=== PATIENT | female | born 1995 | race Caucasian/White ===

== ENCOUNTER 2017-02-09 02:04 | Emergency (ER) | payer SELFPAY ==
[~2017-02-09] VITALS: Ht 160 cm; Wt 96.6 kg
[~2017-02-09 02:04] MED LIST: ACET325T9 PO; AMOX250C PO; META800T21 PO; OMEP20TA PO; ONDA4TAB10 PO; ONDA4TAB10 SL; PRED50TA PO
[2017-02-09 02:41] VITALS: BP 126/76
[2017-02-09] MEDS ORDERED: ACETAMINOPHEN 500 MG TABLET PO ONE ×2 (02:55→03:00)
[2017-02-09 03:08] LABS: INFLUENZA A PATIENT NEGATIVE (NEGATIVE); INFLUENZA B PATIENT NEGATIVE (NEGATIVE)
--- NOTE | 2017-02-09 03:10 | PHYS DOC ---
General Chief Complaint: FLU SYMPTOM Stated Complaint: COUGH,EAR PAIN,SOA Time Seen by MD: 02:23 Source: patient Problems: History of Present Illness Initial Comments Patient here for URI symptoms and earache. Patient says she started feeling unwell about a week ago. She has she's had a significant runny nose and nasal congestion with clear nasal discharge. She's had subjective fever and chills but has not taken her temperature. She's had some earache and also had a sore throat, mostly in the right side of the throat, which was hard for her to swallow. She also says she's had shortness of breath, mild nonproductive cough, and chest discomfort. She states she's had nausea with one episode of emesis, earlier this morning. She has been able tolerate a small amount of by mouth food and fluids since. She has no abdominal pain. She denies any change amount or bladder habits. She has no focal extremity or neurologic complaints. She is reportedly 20 weeks . 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 There is no known sick contacts at home and no increasing or decreasing factors. She says she took Tylenol at home today for this without help. She's taken nothing else for it. Patient's past medical history is otherwise unremarkable other than for current . She is a nonsmoker and nonuser of ethanol. When asked why she is here specifically tonight after week, she says, as her left ear seems to be hurting significantly more tonight, such that she is rocking back and forth, anxious, crying in the exam room at time of physician evaluation. Allergies: Coded Allergies: No Known Drug Allergies (Unverified , 03/17/14) Past Medical History Medical History: no pertinent history Surgical History: noncontributory Social History Smoker: non-smoker Alcohol: none Review of Systems All Other Systems: Reviewed and Negative Physical Exam General Appearance: WD/WN, no apparent distress Ear, Nose, Throat: normal ENT inspection, normal pharynx Neck: full range of motion, supple, normal inspection Respiratory: lungs clear, normal breath sounds, no respiratory distress Cardiovascular: regular rate, rhythm, no edema, no gallop Gastrointestinal: non tender, soft, no organomegaly Back: no CVA tenderness, no vertebral tenderness Extremities: non-tender, normal inspection Neurologic/Psychiatric: alert, oriented x 3 Skin: normal color Comments Generally this is a well-developed well-nourished white female in no acute somatic distress. She is grossly anxious, rocking back and forth, and crying. However, she noted only do this with the physician in the room, and after exiting the room for some time and come back, she is initially lying quietly without complaint and then begins these actions again. Vitals are as noted. Pertinent findings on physical exam show the ears to be clear. Some possible suggestion of some fluid behind left ear but there is certainly no erythema of the canal or the TM, no signs of trauma about the ear. The nose is clear. Throat is clear as well. There is no gross dysphagia and dysphonia or problems with secretions noted. Neck is supple without adenopathy or JVD. There's no meningeal signs. She has some slight tenderness in the left high anterior neck but there is no gross adenopathy swelling redness or lesions seen. Chest is clear to auscultation bilaterally. There is no tachypnea. No retractions. She verbalizes without difficulty. She has no signs of respiratory distress. Cardiac vascular exams unremarkable. The abdomen is soft and nontender. Back shows no CVA tenderness. Extremities show no rash, cyanosis, or edema. Neurologic exam finds the patient awake, grossly anxious and crying, but generally cooperative. Remainder of physical exam is clinically unremarkable. Orders, Labs, Meds Old charts note multiple prior ER visits for a variety of complaints including hyperemesis, head contusion, allergic reaction, strep throat, back pain, contact dermatitis, vomiting with myalgias, eye problem, and UTI. This her second visit this year alone. She was seen here 6 times in 2016. Strep is negative. Influenza A and B is negative. 0300 Patient resting comfortably in the ER. I discussed with her most likely diagnosis her symptoms are probably related to viral URI. She may well have some serous otitis with some nasal congestion. I did discuss with her that this might be difficult to treat given her , is really nothing we can use a Fleet other than Tylenol for pain. She seems somewhat frustrated and disappointed by this information. We'll go and give her a dose of Tylenol here in the emergency department, and I advised on the use of Tylenol at home. I'm able to give her prescription for Benadryl as well as for Claritin-D which are reported to be safe in . Hopefully this will help resolve some of her symptoms. We discussed additional home care including rest, increasing fluids, and again the use of Tylenol only as needed for pain while . She voiced understanding need to follow up with primary care or return to the ER sooner as needed if worsening anyway. She only has not attrition, who apparently told her to come to the ER tonight. We'll give her a list of primary care physicians for follow-up as well. She looks well, anxious. Tearful, but in no acute somatic distress and okay for discharge home at this time. ANDRAE MANN MD Feb 09, 2017 02:57
== END 2017-02-09 03:15 | disposition home or self-care (01) ==
LOC: ER 02:04
DX: O26.892 Other specified pregnancy related conditions, second trimester (principal); H66.90 Otitis media, unspecified, unspecified ear; R06.02 Shortness of breath; J02.9 Acute pharyngitis, unspecified; O21.0 Mild hyperemesis gravidarum; R50.9 Fever, unspecified; R07.89 Other chest pain; Z3A.20 20 weeks gestation of pregnancy
CPT/HCPCS: 87070; 87804; 87880; 99284

== ENCOUNTER 2017-10-01 16:32 | Emergency (ER) | payer OTHER ==
[~2017-10-01] VITALS: Ht 160 cm; Wt 81.8 kg
[~2017-10-01 16:32] MED LIST changes: +AMOX-260 PO; -AMOX250C PO; +META-21 PO; -META800T21 PO; -OMEP20TA PO; +OMEP20TA8 PO
[2017-10-01 16:43] VITALS: BP 110/66
[2017-10-01] MEDS ORDERED: KETOROLAC 60 MG/2 ML VIAL. IM ONE (17:45)
[2017-10-01] MEDS ORDERED: CYCLOBENZAPRINE 10 MG TABLET. PO ONE (18:45)
[2017-10-01] MEDS ORDERED: traMADol 50 MG TABLET PO ONE (18:45)
[2017-10-01] MEDS ORDERED: KETOROLAC 30 MG/ML VIAL. IM ONE (18:45)
[2017-10-01] MEDS ORDERED: TRAM-48 PO ×2 (19:13→19:18)
[2017-10-01] MEDS ORDERED: IBUP600T16 PO ×2 (19:13→19:18)
[2017-10-01] MEDS ORDERED: CYCL-331 PO ×2 (19:13→19:18)
--- NOTE | 2017-10-01 19:16 | PHYS DOC ---
Past History Past Medical History: No Pertinent History Past Surgical History: No Surgical History Smoking: Cigarettes, Less than 1pk/day, Quit Less Than 1 Year Alcohol Use: None Drug Use: None Adult General Chief Complaint Chief Complaint: BACK PAIN - NO INJURY HPI HPI Patient is a 32-year-old female who presents here today complaining of neck pain and shoulder pain. Patient reports that she's had pain to her bilateral sternocleidomastoid muscles and was unable turn her head. Patient denies any other symptomatology. Patient has any fevers shakes chills nausea vomiting diarrhea chest pain shortness of breath cough cold or rhinorrhea. Patient reports she's been taking ibuprofen with minimal relief. Patient reports the pain and discomfort has been there for several days now. Patient presents pain is been getting worse and her neck is becoming more stiff. Patient denies any history of hypertension diabetes liver or kidney problems. Patient does not smoke drink or do any drugs. Patient is allergic to any medications and reports her last menstrual period was approximately 2 weeks ago. Denies any weakness to her upper or lower extremities. Patient denies any paresthesias to her upper or lower extremities. Review of systems: Constitutional: Denies fever or chills Eyes: Denies change in visual acuity, redness, or eye pain HENT: Denies nasal congestion or sore throat Physical exam: All other systems were reviewed and found to be within normal limits, except as documented in this note. Constitutional: Well developed, well nourished, no acute distress, non-toxic appearance. HENT: Normocephalic, atraumatic, bilateral external ears normal, oropharynx moist, no oral exudates, nose normal. Eyes: PERRLA, EOMI, conjunctiva normal, no discharge. Neck: Normal range of motion, no tenderness, supple, no stridor. Cardiovascular:Heart rate regular rhythm, Lungs & Thorax: Bilateral breath sounds clear to auscultation Abdomen: Bowel sounds normal, soft, no tenderness, no masses, no pulsatile masses. Skin: Warm, dry, no erythema, no rash. Back: No tenderness, no CVA tenderness. Extremities: No tenderness, no cyanosis, no clubbing, ROM intact, no edema. Neurologic: Alert and oriented X 3, normal motor function, normal sensory function, no focal deficits noted. Psychologic: Affect normal, judgement normal, mood normal. Patient's ER physical exam is significant for tenderness to palpation to her bilateral sternocleidomastoid muscles as well as pain at producible with rotation of her neck. Assessment and plan: This is a 22-year-old female who presents to the ER today secondary to neck pain and stiffness. Patient's clinically hemodynamically stable. Patient was prescribed a dose of Flexeril and ibuprofen and Ultram in the ED as well as given an arm sling to assist her with her discomfort. Patient is neurovascularly intact. Patient's presentation is consistent with likely torticollis versus muscle strain. Patient has been instructed on heating pad and close follow-up with primary care physician for reevaluation of the pain persists. Patient was discharged home with prescription for Flexeril, Motrin, Ultram and an arms sling. Current Medications Current Medications Current Medications Medications (Trade) Dose Ordered Sig/Alanis Start Time Stop Time Status Last Admin Dose Admin Cyclobenzaprine HCl (Flexeril) 10 mg 1X ONCE 10/01/17 18:45 10/01/17 18:46 DC 10/01/17 18:45 10 MG Ketorolac Tromethamine (Toradol) 30 mg 1X ONCE 10/01/17 18:45 10/01/17 18:46 DC Tramadol HCl (Ultram) 50 mg 1X ONCE 10/01/17 18:45 10/01/17 18:46 DC 10/01/17 18:47 50 MG Allergies Allergies Allergies Coded Allergies Type Severity Reaction Last Updated Verified No Known Drug Allergies 03/17/14 No Current Patient Data Vital Signs Vital Signs Date Time Temp Pulse Resp B/P (MAP) Pulse Ox O2 Delivery O2 Flow Rate FiO2 10/01/17 18:47 18 100 Room Air 10/01/17 16:43 98.5 105 EKG EKG [] Radiology/Procedures Radiology/Procedures [] Course & Med Decision Making Course & Med Decision Making Pertinent Labs and Imaging studies reviewed. (See chart for details) [] Dragon Disclaimer Dragon Disclaimer This electronic medical record was generated, in whole or in part, using a voice recognition dictation system. Departure Departure: Impression: Primary Impression: Torticollis, acute Disposition: 01 HOME, SELF-CARE Condition: IMPROVED Referrals: PCP,NO (PCP) Patient Instructions: Arm Sling Use, [id number], Torticollis, Acute Scripts Tramadol Hcl (ULTRAM) 50 Mg Tablet 50 MG PO PRN Q6HRS Y for PAIN, #20 TAB Prov: KOFI MOSLEY MD 10/01/17 Ibuprofen (IBUPROFEN) 600 Mg Tablet 600 MG PO QID Y for PAIN, #20 Prov: KOFI MOSLEY MD 10/01/17 Cyclobenzaprine Hcl (CYCLOBENZAPRINE HCL) 10 Mg Tablet 1 TAB PO TID, #30 TAB Prov: KOFI MOSLEY MD 10/01/17 Tramadol Hcl (ULTRAM) 50 Mg Tablet 50 MG PO PRN Q6HRS Y for PAIN, #20 TAB Prov: KOFI MOSLEY MD 10/01/17 Ibuprofen (IBUPROFEN) 600 Mg Tablet 600 MG PO QID Y for PAIN, #20 Prov: KOFI MOSLEY MD 10/01/17 Cyclobenzaprine Hcl (CYCLOBENZAPRINE HCL) 10 Mg Tablet 1 TAB PO TID, #30 TAB Prov: KOFI MOSLEY MD 10/01/17 KOFI MOSLEY MD Oct 01, 2017 19:16
== END 2017-10-01 19:50 | disposition home or self-care (01) ==
LOC: ER 16:32
DX: M43.6 Torticollis (principal); Z87.891 Personal history of nicotine dependence
CPT/HCPCS: 81025; 96372; 99283; J1885

== ENCOUNTER 2017-11-28 14:37 | Emergency (ER) | payer OTHER ==
[~2017-11-28] VITALS: Ht 160 cm; Wt 81.8 kg
[~2017-11-28 14:37] MED LIST changes: +CYCL-331 PO; +IBUP600T16 PO; +TRAM-48 PO
--- NOTE | 2017-11-28 15:03 | PHYS DOC ---
Past History Past Medical History: No Pertinent History Past Surgical History: No Surgical History Smoking: Cigarettes, Less than 1pk/day, Quit Less Than 1 Year Alcohol Use: None Drug Use: None Adult General Chief Complaint Chief Complaint: FLU SYMPTOM HPI HPI Patient is a 22 year old F who presents with nausea and vomiting starting this morning. She states that multiple people who live in the same house have had flulike symptoms. She denies other associated symptoms. She denies other exacerbating or alleviating factors. Review of Systems Review of Systems Constitutional: Negative except history of present illness Eyes: Denies change in visual acuity, redness, or eye pain [] HENT: Denies nasal congestion or sore throat [] Respiratory: Denies cough or shortness of breath [] Cardiovascular: No additional information not addressed in HPI [] GI: Negative except history of present illness : Denies dysuria or hematuria [] Musculoskeletal: Denies back pain or joint pain [] Integument: Denies rash or skin lesions [] Neurologic: Denies headache, focal weakness or sensory changes [] Endocrine: Denies polyuria or polydipsia [] All other systems were reviewed and found to be within normal limits, except as documented in this note. Family History Family History No pertinent family medical history was reported Current Medications Current Medications Current medications were reviewed Allergies Allergies Allergies Coded Allergies Type Severity Reaction Last Updated Verified No Known Drug Allergies 03/17/14 No Physical Exam Physical Exam Constitutional: Well developed, well nourished, no acute distress, non-toxic appearance. [] HENT: Normocephalic, atraumatic, bilateral external ears normal, oropharynx moist, no oral exudates, nose normal. [] Eyes: EOMI, conjunctiva normal, no discharge. [] Neck: Normal range of motion, no tenderness, supple, no stridor. [] Cardiovascular:Heart rate regular rhythm, Lungs & Thorax: Bilateral breath sounds clear to auscultation [] Abdomen: Bowel sounds normal, soft, no tenderness, no masses, no pulsatile masses. [] Skin: Warm, dry, no erythema, no rash. [] Extremities: No tenderness, no cyanosis, no clubbing, ROM intact, no edema. [] Neurologic: Alert and oriented X 3, normal motor function, normal sensory function, no focal deficits noted. [] Psychologic: Affect normal, judgement normal, mood normal. [] Current Patient Data Vital Signs Vital Signs Date Time Temp Pulse Resp B/P (MAP) Pulse Ox O2 Delivery O2 Flow Rate FiO2 11/28/17 14:40 98.6 114 18 99 Room Air Lab Results Laboratory Tests Test 11/28/17 14:48 Influenza Type A (Rapid) Negative (NEGATIVE) Influenza Type B (Rapid) Negative (NEGATIVE) EKG EKG [] Radiology/Procedures Radiology/Procedures [] Course & Med Decision Making Course & Med Decision Making Pertinent Labs and Imaging studies reviewed. (See chart for details) [] Dragon Disclaimer Dragon Disclaimer This electronic medical record was generated, in whole or in part, using a voice recognition dictation system. Departure Departure: Impression: Primary Impression: Gastroenteritis Disposition: HOME, SELF-CARE Condition: STABLE Referrals: PCPLUIZA (PCP) Patient Instructions: Viral Gastroenteritis Additional Instructions: Hermila was seen in the emergency department for nausea and vomiting. No emergency medical condition was found on history or physical exam. She was found have a negative flu screen. She was given Zofran, Tylenol and Toradol to treat her symptoms. She is given a prescription for Zofran for nausea. She is advised follow-up with her primary care doctor as needed for further management. She is also advised return the emergency room if she develops new or worsening symptoms. Scripts Ondansetron (ZOFRAN ODT) 4 Mg Tab.rapdis 1 TAB SL Q8HRS, #15 TAB Prov: ABDI SOLER MD 11/28/17 ABDI SOLER MD Nov 28, 2017 15:02
[2017-11-28 15:29] LABS: INFLUENZA A PATIENT NEGATIVE (NEGATIVE); INFLUENZA B PATIENT NEGATIVE (NEGATIVE)
[2017-11-28] MEDS ORDERED: ONDANSETRON ODT 4 MG TAB.RAPDIS PO ONE (15:30)
[2017-11-28] MEDS ORDERED: ONDA4TAB10 SL (15:48)
[2017-11-28] MEDS ORDERED: ACETAMINOPHEN 500 MG TABLET PO ONE (15:50)
[2017-11-28 16:07] VITALS: BP 124/81
[2017-11-28] MEDS ORDERED: KETOROLAC 60 MG/2 ML VIAL. IM ONE (16:20)
[2017-11-29] MEDS ORDERED: OSEL75CA PO (00:51)
[2017-11-29] MEDS ORDERED: BENZ100C PO (00:51)
[2017-11-29] MEDS ORDERED: ONDA8TAB12 PO (00:51)
== END 2017-11-28 16:10 | disposition home or self-care (01) ==
LOC: ER 14:37
DX: K52.9 Noninfective gastroenteritis and colitis, unspecified (principal); Z87.891 Personal history of nicotine dependence
CPT/HCPCS: 87804; 96372; 99284; J1885; Q0162

== ENCOUNTER 2017-11-28 23:21 | Emergency (ER) | payer OTHER ==
[~2017-11-28] VITALS: Ht 160 cm; Wt 81.8 kg
[2017-11-28 23:30] VITALS: BP 113/64
--- NOTE | 2017-11-28 23:50 | PHYS DOC ---
Past History Past Medical History: No Pertinent History Past Surgical History: No Surgical History Smoking: Cigarettes, Less than 1pk/day, Quit Less Than 1 Year Alcohol Use: Occasionally Drug Use: None Adult General Chief Complaint Chief Complaint: SHORTNESS OF BREATH HPI HPI Patient is a 22 year old female who presents with worsening cough, chills and shortness of breath. She was seen earlier today and had a negative influenza screen at 1448 PM. She states her symptoms started today. She felt little lightheaded this morning had chills. Was evaluated here. Since then she's not had any Tylenol or Motrin since which she was dosed here in the ER earlier this afternoon. She's had nausea and vomiting once. No diarrhea. No recent travel. He is not on oral contraceptives. Does smoke tobacco. Review of Systems Review of Systems Constitutional: POS fever or chills Eyes: Denies change in visual acuity, redness, or eye pain HENT: POS nasal congestion but denies sore throat Respiratory: POS cough and shortness of breath Cardiovascular: POS chest pain GI: Denies abdominal pain, POS nausea & vomiting once, Denies bloody stools or diarrhea : Denies dysuria or hematuria Musculoskeletal: Denies back pain POS all over joint pain and body aches Integument: Denies rash or skin lesions Neurologic: Denies headache, focal weakness or sensory changes All other systems were reviewed and found to be within normal limits, except as documented in this note. Allergies Allergies Allergies Coded Allergies Type Severity Reaction Last Updated Verified No Known Drug Allergies 03/17/14 No Physical Exam Physical Exam Constitutional: Well developed, well nourished, no acute distress, non-toxic appearance. HENT: Normocephalic, atraumatic, panic members are clear bilaterally without erythema. Bilateral external ears normal, oropharynx moist, no oral exudates, nose normal. Eyes: PERRLA, EOMI, conjunctiva normal, no discharge. Neck: Normal range of motion, no tenderness, supple, no stridor. Cardiovascular:Heart rate regular rhythm, tachycardic, no murmur Lungs & Thorax: Bilateral breath sounds clear to auscultation, no wheezing rales or rhonchi. Abdomen: Bowel sounds normal, soft, no tenderness, no masses, no pulsatile masses. Skin: Warm, dry, no erythema, no rash. Back: No tenderness, no CVA tenderness. Extremities: No tenderness, no cyanosis, no clubbing, ROM intact, no edema. No calf pain swelling or tenderness. Neurologic: Alert and oriented X 3, normal motor function, normal sensory function, no focal deficits noted. Psychologic: Affect normal, judgement normal, mood normal. Current Patient Data Vital Signs Vital Sign - Last 24 Hours 11/28/17 11/28/17 23:30 23:56 Temp 102.8 Pulse 107 Resp 20 Pulse Ox 100 99 O2 Delivery Room Air Room Air EKG EKG EKG interpreted by myself at 2330 PM shows sinus tachycardia, rate of 103, no ST elevation, nonspecific ST changes. Radiology/Procedures Radiology/Procedures Chest x-ray interpreted by myself at 0035 am normal chronic silhouette, no pleural effusion, no infiltrate or consolidation. No pneumothorax. Normal mediastinum. Course & Med Decision Making Course & Med Decision Making Evaluated patient upon arrival, reviewed recent visit from earlier today. Patient sent to pathology is consistent with a viral syndrome and influenza a particular. I did inform the mother that the swabs often false negative initially. She was dosed here with Tylenol and Motrin and Zofran. Given a DuoNeb treatment. Chest x-ray is negative for any acute consolidation. I informed the mother that I will start her on Tamiflu as she is placed in 24 hours percent rheumatology with classic findings. I did inform the mother the patient that there is no direct here for this. Her symptoms will last for quite some time and the fever and body aches in particular will continue for several more days. She's continue the Tylenol Motrin as that will help her symptoms significantly. Tessalon Perles were written for as well. Zofran prescription provided for any further nausea. Patient is given return and follow up precautions PERC RULE Criteria: Age < than 50 years-Y Heart rate < 100-N Oxygen saturation > 95%-N No hemoptysis-N No estrogen use-N No prior DVT or PE-N No unilateral leg swelling-N No surgery or trauma requiring hospitalization within the prior 4 weeks-N Note: tachycardic due to temp >102. I have spoken with the patient and/or caregivers. I have explained the patient' s condition, diagnosis and treatment plan based on the information available to me at this time. I have answered the patient's and/or caregiver's questions and addressed any concerns. The patient and/or caregivers have as good an understanding of the patient's diagnosis, condition and treatment plan as can be expected at this point. The patient's condition is stable and appropriate for discharge from the emergency department. The patient will pursue further outpatient evaluation with the primary care physician or other designated or consulting physician as outlined in the discharge instructions. The patient and/or caregivers are agreeable to this plan of care and follow-up instructions have been explained in detail. The patient and/or caregivers have received these instructions in written format and have expressed an understanding of the discharge instructions. The patient and/or caregivers are aware that any significant change in condition or worsening of symptoms should prompt an immediate return to this or the closest emergency department or a call to 911. Dragon Disclaimer Dragon Disclaimer This electronic medical record was generated, in whole or in part, using a voice recognition dictation system. Departure Departure: Impression: Primary Impression: Viral syndrome Additional Impression: Cough Disposition: HOME, SELF-CARE Condition: STABLE Referrals: PCP,NO (PCP) Patient Instructions: Influenza Facts, Influenza, Adult Additional Instructions: Your influenza screen from earlier this afternoon was negative however it can often be falsely negative. Because your symptoms are classic for influenza A your provided with Tamiflu dose here and a prescription. You were also dosed with Tessalon pearles for the cough and zofran for the nausea. you need to continue with Tylenol every 4 hours and Motrin every 6 hours for the body aches and discomfort and fever. there is no direct cure for influenza. Scripts Oseltamivir Phosphate (TAMIFLU) 75 Mg Capsule 1 CAP PO BID, #9 CAP Prov: CUATE WORRELL MD 11/29/17 Benzonatate (TESSALON PERLE) 100 Mg Capsule 1 CAP PO TID Y for COUGH, #21 CAP Prov: CUATE WORRELL MD 11/29/17 Ondansetron (ZOFRAN ODT) 8 Mg Tab.rapdis 4 MG PO Q4-6HRS Y for NAUSEA, #10 Prov: CUATE WORRELL MD 11/29/17 Problem Qualifiers CUATE WORRELL MD Nov 28, 2017 23:50
[2017-11-29] MEDS ORDERED: IBUPROFEN 600 MG TABLET. PO ONE
[2017-11-29] MEDS ORDERED: ACETAMINOPHEN 500 MG TABLET PO ONE
[2017-11-29] MEDS ORDERED: IPRATRPIUM/ALBUTEROL 0.5/2.5MG 3 ML NEBU. NEB ONE
[2017-11-29] MEDS ORDERED: ONDANSETRON ODT 4 MG TAB.RAPDIS PO ONE (00:45)
[2017-11-29] MEDS ORDERED: BENZONATATE 100 MG CAPSULE. PO ONE ×2 (00:45→01:03)
[2017-11-29] MEDS ORDERED: OSELTAMIVIR 75 MG CAPSULE PO ONE ×2 (00:45→01:03)
[2017-11-29] MEDS ORDERED: BENZ100C PO (00:51)
[2017-11-29] MEDS ORDERED: OSEL75CA PO (00:51)
[2017-11-29] MEDS ORDERED: ONDA8TAB12 PO (00:51)
[2017-11-29] MEDS ORDERED: ONDANSETRON ODT 4 MG TAB.RAPDIS ONE (01:03)
--- NOTE | 2017-11-29 06:15 | EKG ---
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
--- NOTE | 2017-11-29 09:10 | RAD ---
Single view chest 11/29/2017 Clinical indication: Cough and fever. Comparison: Chest 07/21/2013 Findings: Cardiac and mediastinal silhouettes are unremarkable. No pleural effusion, pneumothorax or focal consolidation. Impression: No acute cardiopulmonary abnormality.
== END 2017-11-29 01:05 | disposition home or self-care (01) ==
LOC: ER 23:21
DX: B34.9 Viral infection, unspecified (principal); R07.9 Chest pain, unspecified; Z87.891 Personal history of nicotine dependence
CPT/HCPCS: 71045; 93005; 94640; 99284; J7620; Q0162

== ENCOUNTER 2017-12-17 12:42 | Emergency (ER) | payer OTHER ==
[~2017-12-17 12:42] MED LIST changes: +BENZ100C PO; +ONDA8TAB12 PO; +OSEL75CA PO
--- NOTE | 2017-12-17 13:28 | PHYS DOC ---
Past History Past Medical History: No Pertinent History Past Surgical History: No Surgical History Smoking: Cigarettes, Less than 1pk/day, Quit Less Than 1 Year Alcohol Use: Occasionally Drug Use: None Adult General Chief Complaint Chief Complaint: UPPER EXTREMITY PAIN [facility] HPI Patient is a pleasant otherwise healthy 22-year-old female who was running out to her car to started this morning in the dark 5:30 AM when she slipped and fell either ice or small and landing on the concrete landing specifically on her left shoulder and elbow. Patient is described pain in her left shoulder left distal clavicle with movement of the shoulder and external rotation of the arm. She denies any prior injury to this shoulder before she did take 1000 mg of Tylenol prior to arrival which did not help her symptoms. This Tylenol was taken about 5:45 AM. Patient denies any shortness of breath or chest pain. She denies any head or neck pain other than with emanating from the shoulder and radiating to the side of the neck. She denies any loss of consciousness with her fall. She is not on any kind of blood thinning medications. Recently she sitting right now she did have some mild tingling and numbness to her pinky finger which is intermittent and now resolving. Patient denies any abuse at home , denies any abdominal pain, denies any nausea, vomiting, diarrhea denies any back pain or hip pain after the fall. Patient's pain is moderate at rest significant with range of motion 10 of 10. Patient initially offered oral pain medication to help facilitate exam. Review of Systems Review of Systems Constitutional: Denies fever or chills [] Eyes: Denies change in visual acuity, redness, or eye pain [] HENT: Denies nasal congestion or sore throat [] Respiratory: Denies cough or shortness of breath [] Cardiovascular: No additional information not addressed in HPI [] GI: Denies abdominal pain, nausea, vomiting, bloody stools or diarrhea [] : Denies dysuria or hematuria [] Musculoskeletal: Positive for joint pain in the shoulder and the elbow Integument: Denies rash or skin lesions [] Neurologic: Denies headache, focal weakness or positive for transient paresthesias of the finger on the left over the pinky no weakness[] Endocrine: Denies polyuria or polydipsia [] All other systems were reviewed and found to be within normal limits, except as documented in this note. Allergies Allergies Allergies Coded Allergies Type Severity Reaction Last Updated Verified No Known Drug Allergies 03/17/14 No Physical Exam Physical Exam Constitutional: Well developed, well nourished, no acute distress, non-toxic appearance. [] HENT: Normocephalic, atraumatic, bilateral external ears normal, oropharynx moist, no oral exudates, nose normal. [] Neck: Normal range of motion, no tenderness, supple, no stridor. [] Cardiovascular:Heart rate regular rhythm, no murmur [] Lungs & Thorax: Bilateral breath sounds clear to auscultation [] Abdomen: Bowel sounds normal, soft, no tenderness, no masses, [] Skin: Warm, dry, no erythema, no rash. [] Back: No tenderness, no CVA tenderness. [] Extremities: No skin tenderness to palpation of lateral aspect of the shoulder the distal portion of the clavicle although is no deformity she does have tenderness over the before meals joint as well. There is minimal if any soft tissue swelling no contusion noted no ecchymosis. Patient has tenderness to palpation over the posterior aspect of the shoulder with radiation to the lateral aspect and medial aspect of the scapula. There is some mild tenderness along the trapezius muscle on the left. Is no midline tenderness to palpation of the neck patient has tenderness along the medial epicondyle elbow with worsening numbness and tingling with percussion over the ulnar nerve. Patient has normal strength and intrinsic muscles of the hand with normal flexion and extension at the wrist although decreased secondary to pain. Patient is normal lumbrical strength in the fingers. Patient has normal extension and flexion of the fingers from the wrist. Patient has normal sensation to light touch and proprioception the pain over the fingers themselves on the left. Patient has brisk capillary refill +2+2 peripheral pulses at the ulnar and radial arteries Neurologic: Alert and oriented X 3, normal motor function, normal sensory function, no focal deficits noted. [] Psychologic: Affect normal, judgement normal, mood normal. [] EKG EKG [] Radiology/Procedures Radiology/Procedures [] [address] [address] IMAGING REPORT Signed PATIENT: KEENAN OCHOA ACCOUNT: [id number] : 1995 LOCATION: ER AGE: 22 SEX: F EXAM STATUS: REG ER ORD. PHYSICIAN: HENRI SHORT MD REASON: fall PROCEDURE: SHOULDER 2+V LEFT 4 views left shoulder 12/17/2017 3:21 PM Indication: Left shoulder pain Comparison: None Findings: There is no fracture or dislocation identified. Articular surfaces are uninterrupted. Soft tissues are unremarkable. Impression: No evidence of acute osseous abnormality DICTATED AND SIGNED BY: GUIDO ROBERTS MD DATE: 12/17/17 9954 CC: HENRI SHORT MD; PCP,NO ~ Course & Med Decision Making Course & Med Decision Making Pertinent Labs and Imaging studies reviewed. (See chart for details) []Impression comes into the ER with a fall from standing landing on the left shoulder complaining of left shoulder pain left elbow pain is tingling to the pinky. My worry is injury to the medial epicondyle or perhaps the axillary nerve or brachial plexus as she fell. Patient has normal strength and flexion at the wrist and decreased range of motion at the elbow secondary to pain. We will image her shoulder and wrist & chest for signs of fracture. Order to facilitate exam we will give her oral medications include Lortab. Her last dose of Tylenol was at 5:45 AM more than enough time [place] [address] IMAGING REPORT Signed PATIENT: KEENAN OCHOA ACCOUNT: [id number] : 1995 LOCATION: ER AGE: 22 SEX: F EXAM STATUS: REG ER ORD. PHYSICIAN: HENRI SHORT MD REASON: fall PROCEDURE: ELBOW LEFT 3V 3 views left elbow 12/17/2017 3:21 PM Indication: Fall, left elbow pain Comparison: None Findings: There is no fracture or dislocation identified. Articular surfaces are uninterrupted. Soft tissues are unremarkable. Impression: No evidence of acute osseous abnormality DICTATED AND SIGNED BY: GUIDO ROBERTS MD DATE: 12/17/17 7804 CC: HENRI SHORT MD; PCP,NO ~ She presented with shoulder pain after fall from standing. Review of her x-rays by me and radiology demonstrate no acute fracture within the shoulder or elbow. Patient has some transient paresthesias to her fingers likely due to an ulnar nerve contusion. Patient does states no weakness physical exam with flexion and extension at the wrist and elbow. She demonstrates no clavicle or before meals joint separation or fracture. Patient was provided a sling for comfort although she may have suffered from a rotator cuff injury patient's decreased range of motion does not facilitate that exam. Patient was placed in a sling for comfort placed on anti-inflammatories and muscle relaxant and follow-up with orthopedic surgery or physical therapy to continue to increase her range of motion. discharge: I've spoken with the patient and/or caregivers. I've explained the patient's condition, diagnosis and treatment plan based on information available to me at this time. I've answered the patient's and/or caregivers questions and addressed any concerns. The patient and/or caregivers have a good understanding the patient's diagnosis, condition and treatment plan as can be expected at this point. Vital signs have been stabilized. The patient's condition is stable for discharge from the emergency department. The patient will pursue further outpatient evaluation with her primary care provider or other designated consulting physician as outlined in the discharge instructions. Patient and/or caregivers are agreeable to this plan of care and follow-up instructions have been explained in detail. The patient and/or caregivers have received these instructions in written format and expressed understanding of these discharge instructions. The patient and her caregivers are aware that if any significant change in condition or worsening of symptoms should prompt him to immediately return to this of the closest emergency department. If an emergent department is not readily available I would encourage him to call 911. Clari Disclaimer Clari Disclaimer This electronic medical record was generated, in whole or in part, using a voice recognition dictation system. Departure Departure: Impression: Primary Impression: Shoulder contusion Additional Impressions: Contusion, shoulder or upper arm Rotator cuff (capsule) sprain Disposition: HOME, SELF-CARE Condition: IMPROVED Referrals: [facility] (PCP) Patient Instructions: Shoulder Exercises, Generic, SportsMed, Shoulder Pain, Shoulder Sprain Additional Instructions: discharge: I've spoken with the patient and/or caregivers. I've explained the patient's condition, diagnosis and treatment plan based on information available to me at this time. I've answered the patient's and/or caregivers questions and addressed any concerns. The patient and/or caregivers have a good understanding the patient's diagnosis, condition and treatment plan as can be expected at this point. Vital signs have been stabilized. The patient's condition is stable for discharge from the emergency department. The patient will pursue further outpatient evaluation with her primary care provider or other designated consulting physician as outlined in the discharge instructions. Patient and/or caregivers are agreeable to this plan of care and follow-up instructions have been explained in detail. The patient and/or caregivers have received these instructions in written format and expressed understanding of these discharge instructions. The patient and her caregivers are aware that if any significant change in condition or worsening of symptoms should prompt him to immediately return to this of the closest emergency department. If an emergent department is not readily available I would encourage him to call 911. Scripts Naproxen Sodium (NAPROXEN SODIUM) 275 Mg Tablet 275 MG PO BID for 7 Days, #14 TAB Prov: HENRI SHORT MD 12/17/17 Methocarbamol (ROBAXIN-750) 750 Mg Tablet 1 TAB PO BID, #20 TAB Prov: HENRI SHORT MD 12/17/17 Problem Qualifiers HENRI SHORT MD Dec 17, 2017 13:28
--- NOTE | 2017-12-17 13:57 | RAD ---
4 views left shoulder 12/17/2017 3:21 PM Indication: Left shoulder pain Comparison: None Findings: There is no fracture or dislocation identified. Articular surfaces are uninterrupted. Soft tissues are unremarkable. Impression: No evidence of acute osseous abnormality
--- NOTE | 2017-12-17 13:57 | RAD ---
3 views left elbow 12/17/2017 3:21 PM Indication: Fall, left elbow pain Comparison: None Findings: There is no fracture or dislocation identified. Articular surfaces are uninterrupted. Soft tissues are unremarkable. Impression: No evidence of acute osseous abnormality
[2017-12-17] MEDS ORDERED: HYDROcodone/APAP 5/325MG 1 TAB TABLET PO ONE (14:00)
[2017-12-17] MEDS ORDERED: METH-38 PO (14:15)
[2017-12-17] MEDS ORDERED: NAPR275T59 PO (14:15)
[2017-12-17 14:28] VITALS: BP 133/84
== END 2017-12-17 14:28 | disposition home or self-care (01) ==
LOC: ER 12:42
DX: S43.422A Sprain of left rotator cuff capsule, initial encounter (principal); S40.012A Contusion of left shoulder, initial encounter; Z87.891 Personal history of nicotine dependence; W01.198A Fall on same level from slipping, tripping and stumbling with subsequent striking against other object, initial encounter; Y93.02 Activity, running; Y92.89 Other specified places as the place of occurrence of the external cause; Y99.8 Other external cause status
CPT/HCPCS: 73030; 73080; 99284

== ENCOUNTER 2018-01-27 12:31 | Emergency (ER) | payer OTHER ==
[~2018-01-27] VITALS: Ht 160 cm; Wt 86.2 kg
[~2018-01-27 12:31] MED LIST changes: +METH-38 PO; +NAPR275T59 PO
--- NOTE | 2018-01-27 13:10 | PHYS DOC ---
General Chief Complaint: CHEST PAIN Stated Complaint: CHEST PAIN Time Seen by MD: 12:31 Source: patient Exam Limitations: no limitations Problems: History of Present Illness Initial Comments 22-year-old female to the emergency department with her mom for chest pain and shortness of breath. Patient is very dramatic she's hyperventilating and initially will not provide any history to me. Mom states that patient has had left-sided chest pain and shortness of breath since this morning. She's also had bilateral hand numbness and tingling as well as perioral numbness and tingling. She is noted to be hyperventilating on arrival and I coached her to change her breathing. I asked mom if the patient had any stressors or major life changes recently, she states that the patient became engaged yesterday and she is [facility]. Mom and the patient state throughout the ED course that they feel adderall might help the patient. Timing/Duration: 1 hour Severity: severe Modifying Factors: improves with other Associated Symptoms: chest pain, shortness of breath, other Allergies: Coded Allergies: No Known Drug Allergies (Unverified , 03/17/14) Past Medical History Medical History: no pertinent history, other (some question whether the patient taken Adderall in the past) Surgical History: noncontributory Psychosocial History: other (mood disorder NOS) Review of Systems Constitutional: denies chills, denies fever, denies malaise Respiratory: denies cough, denies orthopnea, shortness of breath, denies wheezing Cardiovascular: chest pain, palpitations, denies syncope Gastrointestinal: denies abdominal pain, denies diarrhea, nausea, denies vomiting Genitourinary: denies dysuria, denies frequency, denies hematuria Musculoskeletal: denies back pain, denies joint pain, denies neck pain Psychiatric/Neurological: see HPI, denies headache, denies numbness, denies paresthesia Hematologic/Lymphatic: denies blood clots, denies easy bleeding, denies easy bruising Physical Exam General Appearance: moderate distress Eyes: bilateral eye normal inspection, bilateral eye PERRL, bilateral eye EOMI Ear, Nose, Throat: hearing grossly normal, normal ENT inspection, normal pharynx Neck: non-tender, supple Respiratory: chest non-tender, lungs clear, normal breath sounds, no respiratory distress, no accessory muscle use Cardiovascular: normal peripheral pulses, regular rate, rhythm Gastrointestinal: non tender, soft Back: no CVA tenderness, no vertebral tenderness Extremities: non-tender, normal inspection Neurologic/Psychiatric: seasoner II-XII nml as tested, no motor/sensory deficits, alert, oriented x 3, other (very anxious appears to be having a panic attack) Orders, Labs, Meds EKG: Normal sinus rhythm 69 bpm, no ST segment elevation normal study interpreted by me. PATIENT: KEENAN OCHOA ACCOUNT: [id number] : 1995 LOCATION: ER AGE: 22 SEX: F EXAM STATUS: REG ER ORD. PHYSICIAN: RODERICK BRYANT DO REASON: chest tightness PROCEDURE: CHEST PA & LATERAL PA and lateral chest radiograph. History: Chest tightness. Comparison: November 29, 2017. Findings: Cardiomediastinal silhouette is within normal limits for size. Bilateral lung swanson appear clear without evidence of infiltrate, effusion, or pneumothorax. Impression: 1. No acute cardiopulmonary process. Electronically signed by: Anthony Leija MD (01/27/2018 2:15 PM) [place] [address] DICTATED AND SIGNED BY: ANTHONY LEIJA MD DATE: 01/27/18 1414 CC: PCP,NO; RODERICK BRYANT DO ~ I-STAT BMP unremarkable Departure Time of Disposition: 15:57 Disposition: 01 HOME, SELF-CARE Diagnosis: dyspnea, anxiety Condition: IMPROVED Patient Instructions: Anxiety and Panic Attacks, [id number], Shortness of Breath, [id number] Additional Instructions: Please review the patient education materials given by ED staff. No driving or operating machinery while sedated with medications. Prescriptions: Zithromax, albuterol MDI, hydroxyzine [facility]up [facility] as scheduled. Follow-up with your doctor in 5-7 days if no improvement. Return to ED with new or changing symptoms RODERICK BRYANT DO Jan 27, 2018 13:10
[2018-01-27] MEDS ORDERED: LORazepam 2 MG/ML VIAL IV ONE (13:15)
--- NOTE | 2018-01-27 14:10 | EKG ---
[address] [address] Test Date: 2018-01-27 Test Time: 12:41:59 Pat Name: KEENAN OCHOA Department: Room: Gender: F Creative Lead: SHEYLA : 1995 Requested By: RODERICK BRYANT Order Number: [id number] Reading MD: Measurements Intervals [place] Rate: 69 P: 0 GA: 126 QRS: 28 QRSD: 86 T: 25 QT: 410 QTc: 441 Interpretive Statements SINUS RHYTHM NORMAL ECG RI6.01 No previous ECG available for comparison
[2018-01-27] MEDS ORDERED: IPRATRPIUM/ALBUTEROL 0.5/2.5MG 3 ML NEBU. NEB ONE (14:15)
--- NOTE | 2018-01-27 14:18 | RAD ---
PA and lateral chest radiograph. History: Chest tightness. Comparison: November 29, 2017. Findings: Cardiomediastinal silhouette is within normal limits for size. Bilateral lung swanson appear clear without evidence of infiltrate, effusion, or pneumothorax. Impression: 1. No acute cardiopulmonary process. Electronically signed by: Lucas uV MD (01/27/2018 2:15 PM) [place] [id number]
[2018-01-27 15:51] LABS: HEMOGLOBIN ISTAT 12.2 gm/dL; POTASSIUM ISTAT 3.6 mmol/L (3.5-5.0)
[2018-01-27] MEDS ORDERED: ALBU8.5H8 INH (15:56)
[2018-01-27] MEDS ORDERED: AZIT250T PO (15:56)
[2018-01-27] MEDS ORDERED: HYDR25TA PO (15:56)
[2018-01-27 16:11] VITALS: BP 101/56
== END 2018-01-27 16:10 | disposition home or self-care (01) ==
LOC: ER 12:31
DX: F41.9 Anxiety disorder, unspecified (principal)
CPT/HCPCS: 36415; 71046; 80047; 85014; 85018; 93005; 94640; 96374; 99284; J2060; J7620

== ENCOUNTER 2018-04-14 21:36 | Emergency (ER) | payer OTHER ==
[~2018-04-14] VITALS: Ht 160 cm; Wt 88.5 kg
[~2018-04-14 21:36] MED LIST changes: +ALBU8.5H8 INH; +AZIT250T PO; +HYDR25TA PO
== END 2018-04-14 21:55 | disposition left against medical advice (07) ==
LOC: ER 21:36
DX: M54.89 Other dorsalgia (principal); Z53.21 Procedure and treatment not carried out due to patient leaving prior to being seen by health care provider

== ENCOUNTER 2018-04-14 23:07 | Emergency (ER) | payer OTHER ==
[~2018-04-14] VITALS: Ht 160 cm; Wt 81.8 kg
[2018-04-14 23:15] VITALS: BP 137/64
--- NOTE | 2018-04-15 | ED.ADGEN ---
Past History Past Medical History: No Pertinent History Past Surgical History: No Surgical History Smoking: Cigarettes, Less than 1pk/day, Quit Less Than 1 Year Alcohol Use: Occasionally Drug Use: None Adult General HPI HPI Patient is a 22 year old female who presents with back pain. Patient was in the department approximately 40 minutes prior to my attempt to evaluate her. At the time I entered the room, she was verbally abusive toward staff screaming profanities and threatening to reji this "fucking" hospital. Did not do a complete history of present illness or ROS in this patient as she was ambulating to the exit. Review of Systems Review of Systems No ROS completed. All other systems were reviewed and found to be within normal limits, except as documented in this note. Allergies Allergies Allergies Coded Allergies Type Severity Reaction Last Updated Verified No Known Drug Allergies 03/17/14 No Physical Exam Physical Exam Constitutional: Well developed, well nourished, ambulating out of the room with a normal steady gait at a brisk pace and in no distress. HENT: Normocephalic, Neck: Normal range of motion, Skin: Warm, dry, no erythema Extremities: Normal ROM Neurologic: Alert and oriented X 3 Psychologic: Angry and inappropriate. Threatening staff. Calling staff members profanities. EKG EKG [] Radiology/Procedures Radiology/Procedures [] Course & Med Decision Making Course & Med Decision Making Pertinent Labs and Imaging studies reviewed. (See chart for details) I did not do a formal history of present illness, ROS, or physical exam on this patient. I could only see her from a few feet away as she was exiting the emergency department at the time I went to evaluate her. Of note, the patient was in the ER only a couple hours earlier. At that time it was a similar situation. I did go to see the patient but she had already signed out AGAINST MEDICAL ADVICE. At that time she was angry because she had waited too long prior to physician evaluation. The patient was in the emergency department for approximately 20 minutes during that visit. During this visit, she was in the ER for a total time of approximately 40 minutes. She was ambulatory to the exit and in no apparent distress other than extending a lot of energy to curse at staff and scream profanities. Final Impression Final Impression Back Pain Dragon Disclaimer Dragon Disclaimer This electronic medical record was generated, in whole or in part, using a voice recognition dictation system. ANISA NUÑEZ DO April 15, 2018 00:00
== END 2018-04-14 23:40 | disposition left against medical advice (07) ==
LOC: ER 23:07
DX: M54.89 Other dorsalgia (principal); Z53.21 Procedure and treatment not carried out due to patient leaving prior to being seen by health care provider
CPT/HCPCS: 99281

== ENCOUNTER 2018-11-27 11:08 | Emergency (ER) | payer OTHER ==
[~2018-11-27] VITALS: Ht 160 cm; Wt 117.5 kg
[~2018-11-27 11:08] MED LIST changes: +ALBU2.5V8 INH; -ALBU8.5H8 INH
[2018-11-27] MEDS ORDERED: IV NORMAL SALINE 1,000ML 1,000 ML IV SCH (11:40)
[2018-11-27] MEDS ORDERED: PROCHLORPERAZINE 10 MG/2 ML VIAL. IV ONE (11:45)
[2018-11-27] MEDS ORDERED: HYOSCYAMINE 0.125 MG TAB.RAPDIS PO ONE (11:45)
--- NOTE | 2018-11-27 11:46 | PHYS DOC ---
Past History Past Medical History: No Pertinent History Past Surgical History: No Surgical History Smoking: Cigarettes, Less than 1pk/day, Quit Less Than 1 Year Alcohol Use: Occasionally Drug Use: None Adult General Chief Complaint Chief Complaint: ABDOMINAL PAIN HPI HPI Patient is a [23] year old [female] who presents with right upper quadrant abdominal pain. This particular episode started approximately 5:00 this morning. Nothing seems to make the discomfort better or worse. Patient has had the issue several times in the past couple of weeks, and was seen at an outlying facility and told that she had gallbladder disease and recommended that she have it taken out. She deferred at that time due to monetary issues. Patient denies any nausea or vomiting. Reports the pain is severe and sharp in her right upper quadrant. No worse with bumps in the car ride to the emergency department. No diarrhea. She has taken no home pain medicines.[] Review of Systems Review of Systems Constitutional: Denies fever or chills [] Eyes: Denies change in visual acuity, redness, or eye pain [] HENT: Denies nasal congestion or sore throat [] Respiratory: Denies cough or shortness of breath [] Cardiovascular: No chest pain or palpitations[] GI: See history of present illness[] : Denies dysuria or hematuria [] Musculoskeletal: Denies back pain or joint pain [] Integument: Denies rash or skin lesions [] Neurologic: Denies headache, focal weakness or sensory changes [] Endocrine: Denies polyuria or polydipsia [] All other systems were reviewed and found to be within normal limits, except as documented in this note. Current Medications Current Medications Current Medications Medications (Trade) Dose Ordered Sig/Alanis Start Time Stop Time Status Last Admin Dose Admin Hyoscyamine (Anaspaz) 0.125 mg 1X ONCE 11/27/18 11:45 11/27/18 11:46 Prochlorperazine Edisylate (Compazine) 5 mg 1X ONCE 11/27/18 11:45 11/27/18 11:46 Sodium Chloride 1,000 ml @ 1,000 mls/hr Q1H 11/27/18 11:40 11/27/18 12:39 Allergies Allergies Allergies Coded Allergies Type Severity Reaction Last Updated Verified No Known Drug Allergies 03/17/14 No Physical Exam Physical Exam Constitutional: Well developed, well nourished, no acute distress, non-toxic appearance. [] HENT: Normocephalic, atraumatic, bilateral external ears normal, oropharynx moist, no oral exudates, nose normal. [] Eyes: PERRLA, EOMI, conjunctiva normal, no discharge. [] Neck: Normal range of motion, no tenderness, supple, no stridor. [] Cardiovascular:Heart rate regular rhythm, no murmur [] Lungs & Thorax: Bilateral breath sounds clear to auscultation [] Abdomen: Bowel sounds normal, soft, in the right upper quadrant, no right lower quadrant tenderness, no rebound, no guarding, no rigidity, no masses, no pulsatile masses. [] Skin: Warm, dry, no erythema, no rash. [] Back: No tenderness, no CVA tenderness. [] Extremities: No tenderness, no cyanosis, no clubbing, ROM intact, no edema. [] Neurologic: Alert and oriented X 3, normal motor function, normal sensory function, no focal deficits noted. [] Psychologic: Affect normal, judgement normal, mood normal. [] EKG EKG [] Radiology/Procedures Radiology/Procedures EXAM: Abdomen sonogram. HISTORY: Right upper quadrant pain. TECHNIQUE: Sonographic imaging of the abdomen was performed. COMPARISON: None. FINDINGS: The liver is normal in size. No focal hepatic lesion is seen. There is slight hepatic steatosis. The common bile duct is dilated for patient age, measuring 9.2 mm. There is cholelithiasis. There is called wall thickening and a positive sonographic Faust's sign. The right kidney, pancreas, aorta and inferior vena cava are unremarkable. IMPRESSION: 1. Cholelithiasis with superimposed gallbladder wall thickening and positive sonographic Faust's sign, suggesting cholecystitis. 2. Common bile duct dilatation. The possibility of an obstructing etiology is not excluded. This can be assessed with an MRCP or ERCP if clinically indicated. 3. Suspected slight hepatic steatosis.[] Course & Med Decision Making Course & Med Decision Making Pertinent Labs and Imaging studies reviewed. (See chart for details) ED course: Patient arrived, was placed in bed, tolerated exam well. Records were requested from [facility] and were reviewed. Findings from lab and imaging were discussed with patient and family who voiced understanding. Consultation was made with surgery at [facility] who would be happy to care for the patient on a surgical standpoint but requested that hospitalist admit. Given that she had inadequate pain control and that this is at least the third visit for this issue, and station then was made with the hospitalist service for admission at [facility] since no surgical capabilities are available at [facility]. Medical decision making: Patient appears to have symptomatic cholelithiasis with radiographic evidence of cholecystitis, but without laboratory evidence of cholecystitis. There is no evidence of pancreatitis, or perforation.[] Dragon Disclaimer Dragon Disclaimer This electronic medical record was generated, in whole or in part, using a voice recognition dictation system. Departure Departure: Impression: Primary Impression: Cholecystitis Disposition: 05 XFER OTHER Condition: STABLE Referrals: PCP,NO (PCP) STAR MALIK DO Nov 27, 2018 11:46
[2018-11-27 12:05] LABS: BASO % 1 % (0-3); EOS # 0.1 x10^3/uL (0.0-0.7); EOS % 2 % (0-3); HEMATOCRIT 41.9 % (36.0-47.0); HEMOGLOBIN 13.8 g/dL (12.0-15.5); LYMPH # 1.8 x10^3/uL (1.0-4.8); LYMPH % 24 % (24-48); MEAN CORPUSCULAR HEMOGLOBIN 25 pg (25-35); MEAN CORPUSCULAR HGB CONC 33 g/dL (31-37); MEAN CORPUSCULAR VOLUME 76 fL (79-100); MONO # 0.7 x10^3/uL (0.0-1.1); MONO % 10 % (0-9); NEUT # 4.8 x10^3uL (1.8-7.7); NEUT % 64 % (31-73); PLATELET COUNT 278 x10^3/uL (140-400); RED CELL DISTRIBUTION WIDTH 14.8 % (11.5-14.5); WHITE BLOOD COUNT 7.6 x10^3/uL (4.0-11.0)
[2018-11-27 12:12] LABS: ALBUMIN/GLOBULIN RATIO 0.8 (1.0-1.7); CALCIUM 8.2 mg/dL (8.5-10.1); CREATININE 0.8 mg/dL (0.6-1.0); GFR 88.1; POTASSIUM 4.2 mmol/L (3.5-5.1); TOTAL BILIRUBIN 0.2 mg/dL (0.2-1.0); TOTAL PROTEIN 6.9 g/dL (6.4-8.2)
--- NOTE | 2018-11-27 12:22 | RAD ---
EXAM: Abdomen sonogram. HISTORY: Right upper quadrant pain. TECHNIQUE: Sonographic imaging of the abdomen was performed. COMPARISON: None. FINDINGS: The liver is normal in size. No focal hepatic lesion is seen. There is slight hepatic steatosis. The common bile duct is dilated for patient age, measuring 9.2 mm. There is cholelithiasis. There is called wall thickening and a positive sonographic Faust's sign. The right kidney, pancreas, aorta and inferior vena cava are unremarkable. IMPRESSION: 1. Cholelithiasis with superimposed gallbladder wall thickening and positive sonographic Faust's sign, suggesting cholecystitis. 2. Common bile duct dilatation. The possibility of an obstructing etiology is not excluded. This can be assessed with an MRCP or ERCP if clinically indicated. 3. Suspected slight hepatic steatosis. Electronically signed by: Rolanda Mosley MD (11/27/2018 12:18 PM) [facility]
[2018-11-27] MEDS ORDERED: KETOROLAC 30 MG/ML VIAL. IV ONE (12:45)
[2018-11-27 12:53] VITALS: BP 124/55
[2018-11-27 12:59] LABS: BILIRUBIN,URINE NEG (NEG); CLARITY,URINE HAZY; COLOR,URINE STRAW; GLUCOSE,URINE NEG (NEG); NITRITE,URINE NEG (NEG); UROBILINOGEN,URINE 0.2 mg/dL (0.2 mg/dL)
[2018-11-27 13:00] LABS: BACTERIA,URINE 0 /HPF (0-FEW); RBC,URINE RARE /HPF (0-2); SQUAMOUS EPITHELIAL CELL,UR FEW /LPF; WBC,URINE RARE /HPF (0-4)
[2018-11-27] MEDS ORDERED: IV NORMAL SALINE 1,000ML 1,000 ML IV ONE (13:15)
== END 2018-11-27 13:34 | disposition short-term general hospital (02) ==
LOC: ER 11:08
DX: K80.10 Calculus of gallbladder with chronic cholecystitis without obstruction (principal); K83.8 Other specified diseases of biliary tract; K76.0 Fatty (change of) liver, not elsewhere classified; Z87.891 Personal history of nicotine dependence
CPT/HCPCS: 36415; 76705; 80053; 81001; 81025; 83690; 84702; 85025; 87086; 96374; 96375; 99285; J0780; J1885; J7030

== ENCOUNTER 2019-04-23 10:45 | Emergency (ER) | payer OTHER ==
[~2019-04-23] VITALS: Ht 160 cm; Wt 81.8 kg
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
[2019-04-23] MEDS ORDERED: ALPRAZolam 0.25 MG TABLET ONE (11:07)
[2019-04-23 11:23] VITALS: BP 113/72
[2019-04-23] MEDS ORDERED: ALPRAZolam 0.5 MG TABLET PO ONE (11:30)
[2019-04-23] MEDS ORDERED: ALPRAZolam 0.25 MG TABLET PO ONE (11:45)
== END 2019-04-23 11:38 | disposition home or self-care (01) ==
LOC: EEVIPCON 10:45 → ER 10:45
DX: F41.9 Anxiety disorder, unspecified (principal); Z87.891 Personal history of nicotine dependence
CPT/HCPCS: 99284

== ENCOUNTER 2019-10-28 12:42 | Emergency (ER) | payer OTHER ==
[~2019-10-28] VITALS: Ht 160 cm; Wt 117.5 kg
--- NOTE | 2019-10-28 13:55 | PHYS DOC ---
Past History Past Medical History: Anxiety, Depression Past Surgical History: No Surgical History Smoking: Cigarettes, Less than 1pk/day, Quit Less Than 1 Year Alcohol Use: Occasionally Drug Use: None Adult General Chief Complaint Chief Complaint: NAUSEA/VOMITING/DIARRHEA HPI HPI Patient is a 24-year-old female presents with intermittent daily headaches for the past several days. Headache is right retro-orbital/temporal it is described as all aching and throbbing. It is rated moderate to severe and is worse with light noise and movement. Patient has taken Advil with limited relief. Reports nausea and vomiting with last episode of vomiting today. Ports history of chronic recurrent headaches. Denies fever chills, sinus pain, tenderness, neck pain, rash, extremity weakness or loss of sensation. No other acute symptoms or complaints. Last menstrual period was one month ago. Patient is not currently on control.[] Review of Systems Review of Systems Review symptoms as prescribed. All other systems were reviewed and found to be within normal limits, except as documented in this note. Current Medications Current Medications Current Medications Medications (Trade) Dose Ordered Sig/Alanis Start Time Stop Time Status Last Admin Dose Admin Diphenhydramine HCl (Benadryl) 50 mg 1X ONCE 10/28/19 14:15 10/28/19 14:16 Ondansetron HCl (Zofran) 4 mg 1X ONCE 10/28/19 14:15 10/28/19 14:16 Prochlorperazine Edisylate (Compazine) 10 mg 1X ONCE 10/28/19 14:15 10/28/19 14:16 Sodium Chloride 1,000 ml @ 1,000 mls/hr 1X ONCE 10/28/19 14:15 10/28/19 15:14 Allergies Allergies Allergies Coded Allergies Type Severity Reaction Last Updated Verified No Known Drug Allergies 03/17/14 No Physical Exam Physical Exam Constitutional: Well developed, moderate discomfort secondary to pain. [] HENT: Normocephalic, atraumatic, bilateral external ears normal, oropharynx moist nose normal. [] Eyes: PERRLA, EOMI, conjunctiva normal, no discharge. [] Neck: Normal range of motion, no tenderness, supple, no stridor. [] Cardiovascular:Heart rate regular rhythm, no murmur [] Lungs & Thorax: Bilateral breath sounds clear to auscultation [] Abdomen: Bowel sounds normal. [] Skin: Warm, dry, no erythema, no rash. [] Back: No tenderness. [] Extremities: No tenderness, no cyanosis, no clubbing, ROM intact, no edema. [] Neurologic: Alert and oriented X 3, cranial nerves II through XII grossly i ntact, normal motor function, normal sensory function, no focal deficits noted. [] Psychologic: Affect normal, judgement normal, mood normal. [] Current Patient Data Vital Signs Vital Signs Date Time Temp Pulse Resp B/P (MAP) Pulse Ox O2 Delivery O2 Flow Rate FiO2 10/28/19 12:51 98.4 90 18 95 Room Air EKG EKG [] Radiology/Procedures Radiology/Procedures [CT head: No acute disease per radiology report] Course & Med Decision Making Course & Med Decision Making Pertinent Labs and Imaging studies reviewed. (See chart for details) [Recurrent migraine-like headache, resolved with treatment. No focal neurologic deficits on exam. CT, lab and unremarkable. Patient resting comfortably pain free at time of discharge.] Dragon Disclaimer Dragon Disclaimer This electronic medical record was generated, in whole or in part, using a voice recognition dictation system. Departure Departure: Impression: Primary Impression: Headache Disposition: 01 HOME, SELF-CARE Condition: STABLE Referrals: PCP,NO (PCP) Patient Instructions: General Headache Without Cause, [id number], Nausea and Vomiting, [id number] Additional Instructions: Please increase fluids and take nausea medication and pain medication as directed. Follow-up with your PCP for reevaluation 3-5 days if symptoms persist. Return to the ED if new or worsening symptoms. Scripts Prochlorperazine Maleate (Compazine) 10 Mg Tablet 1 TAB PO Q6HRS for 2 Days, #8 TAB 0 Refills Prov: ASHLEY GAMBOA DO 10/28/19 Tramadol Hcl (TRAMADOL HCL) 50 Mg Tablet 50 MG PO PRN Q6HRS PRN for PAIN, #5 TAB Prov: ASHLEY GAMBOA DO 10/28/19 ASHLEY GAMBOA DO Oct 28, 2019 13:54
[2019-10-28 14:00] LABS: BASO # 0.1 x10^3/uL (0.0-0.2); BASO % 1 % (0-3); EOS % 0 % (0-3); HEMATOCRIT 44.6 % (36.0-47.0); HEMOGLOBIN 14.7 g/dL (12.0-15.5); LYMPH # 2.3 x10^3/uL (1.0-4.8); LYMPH % 25 % (24-48); MEAN CORPUSCULAR HEMOGLOBIN 26 pg (25-35); MEAN CORPUSCULAR HGB CONC 33 g/dL (31-37); MEAN CORPUSCULAR VOLUME 79 fL (79-100); MONO # 0.8 x10^3/uL (0.0-1.1); MONO % 9 % (0-9); NEUT % 65 % (31-73); PLATELET COUNT 303 x10^3/uL (140-400); RED BLOOD COUNT 5.66 x10^6/uL (3.50-5.40); RED CELL DISTRIBUTION WIDTH 14.8 % (11.5-14.5); WHITE BLOOD COUNT 9.1 x10^3/uL (4.0-11.0)
[2019-10-28] MEDS ORDERED: diphenhydrAMINE 50 MG/ML VIAL IVP ONE (14:15)
[2019-10-28] MEDS ORDERED: PROCHLORPERAZINE 10 MG/2 ML VIAL. IV ONE (14:15)
[2019-10-28] MEDS ORDERED: IV NORMAL SALINE 1,000ML 1,000 ML IV ONE (14:15)
[2019-10-28] MEDS ORDERED: ONDANSETRON PF 4 MG/2 ML VIAL. IVP ONE (14:15)
[2019-10-28 14:19] LABS: ALBUMIN 3.5 g/dL (3.4-5.0); ALBUMIN/GLOBULIN RATIO 0.9 (1.0-1.7); CALCIUM 9.2 mg/dL (8.5-10.1); CREATININE 0.8 mg/dL (0.6-1.0); GFR 87.4; POTASSIUM 3.8 mmol/L (3.5-5.1); TOTAL BILIRUBIN 0.5 mg/dL (0.2-1.0); TOTAL PROTEIN 7.6 g/dL (6.4-8.2)
--- NOTE | 2019-10-28 15:06 | RAD ---
Examination: CT HEAD WO CONTRAST History: Headache Comparison/Correlation: 10/16/2016 CT head maxillary facial without contrast report Findings: Axial images of the head are obtained without contrast. Ventricles are normal size. No intracranial hemorrhage, midline shift, or mass effect. Brink-white matter differentiation is adequate. Bony structures are unremarkable. Minimal mucosal thickening of the paranasal sinuses noted. Impression: No suspicious process. PQRS Compliance Statement: One or more of the following individualized dose reduction techniques were utilized for this examination: 1. Automated exposure control 2. Adjustment of the mA and/or kV according to patient size 3. Use of iterative reconstruction technique Electronically signed by: Vince Forbes MD (10/28/2019 3:03 PM) [facility]
[2019-10-28 15:21] VITALS: BP 110/78
[2019-10-28] MEDS ORDERED: PROC10TA57 PO (15:30)
[2019-10-28] MEDS ORDERED: TRAM50TA PO (15:30)
== END 2019-10-28 15:35 | disposition home or self-care (01) ==
LOC: ER 12:42
DX: R51 Headache (principal); R11.2 Nausea with vomiting, unspecified; F41.9 Anxiety disorder, unspecified; F32.9 Major depressive disorder, single episode, unspecified; Z87.891 Personal history of nicotine dependence
CPT/HCPCS: 36415; 70450; 80053; 84702; 85025; 96361; 96374; 96375; 99285; J0780; J1200; J2405; J7030

== ENCOUNTER 2020-11-13 20:06 | Emergency (ER) | payer OTHER ==
[~2020-11-13] VITALS: Ht 160 cm; Wt 124.5 kg
[~2020-11-13 20:06] MED LIST changes: +PROC10TA57 PO; +TRAM50TA PO
[2020-11-13] MEDS ORDERED: DEXAMETHASONE SOD PHOS 10 MG/ML VIAL. IV ONE (21:15)
[2020-11-13] MEDS ORDERED: MECLIZINE 12.5 MG TABLET. PO ONE (21:15)
--- NOTE | 2020-11-13 21:26 | PHYS DOC ---
Past History Past Medical History: No Pertinent History (CARLOS CARVALHO APRN) Past Surgical History: Cholecystectomy (CARLOS CARVALHO APRN) Smoking: Cigarettes, Less than 1pk/day, Quit Less Than 1 Year Alcohol Use: None Drug Use: None (CARLOS CARVALHO APRN) General Adult EDM: Chief Complaint: DIZZY/LIGHT HEADED HPI: HPI: Patient is a 25-year-old female who presents with dizziness and headache that comes and goes for the last two days. Patient states that symptoms are worse with standing and improve with laying down. Patient denies vision changes, n/v. Patient reports to taking ibuprofen at home with little relief. (CARLOS CARVALHO APRN) Review of Systems: Review of Systems: Constitutional: Denies fever or chills Eyes: Denies change in visual acuity HENT: Denies nasal congestion or sore throat Respiratory: Denies cough or shortness of breath Cardiovascular: Denies chest pain or edema GI: Denies abdominal pain, nausea, vomiting, bloody stools or diarrhea : Denies dysuria Musculoskeletal: Denies back pain or joint pain Integument: Denies rash Neurologic: Reports headache,denies focal weakness or sensory changes Endocrine: Denies polyuria or polydipsia Lymphatic: Denies swollen glands Psychiatric: Denies depression or anxiety (CARLOS CARVALHO APRN) Allergies: Allergies: Allergies Coded Allergies Type Severity Reaction Last Updated Verified No Known Drug Allergies 03/17/14 No (CARLOS CARVALHO APRN) Physical Exam: PE: Constitutional: Well developed, well nourished, no acute distress, non-toxic appearance. [] HENT: Normocephalic, atraumatic, bilateral external ears normal, oropharynx moist, no oral exudates, nose normal. [] Eyes: PERRLA, EOMI, conjunctiva normal, no discharge. [] Neck: Normal range of motion, no tenderness, supple, no stridor. [] Cardiovascular:Heart rate sinus tach, no murmur [] Lungs & Thorax: Bilateral breath sounds clear to auscultation [] Abdomen: Bowel sounds normal, soft, no tenderness, no masses, no pulsatile masses. [] Skin: Warm, dry, no erythema, no rash. [] Back: No tenderness, no CVA tenderness. [] Extremities: No tenderness, no cyanosis, no clubbing, ROM intact, no edema. [] Neurologic: Alert and oriented X 3, normal motor function, normal sensory function, no focal deficits noted. [] Psychologic: Affect normal, judgement normal, mood normal. [] (CARLOS CARVALHO APRN) PE: Constitutional: Well developed, well nourished, no acute distress, non-toxic appearance HENT: Normocephalic, atraumatic Eyes: PERRL, EOMI, conjunctiva normal, no discharge, no nystagmus Neck: Normal range of motion, supple, no meningeal signs Lungs & Thorax: No respiratory distress, equal chest rise and fall Abdomen: Soft, no tenderness Skin: Warm, dry, no erythema, no rash Extremities: No tenderness, ROM intact, no edema Neurologic: Alert and oriented X 3, normal motor function, normal sensory function, no focal deficits noted Psychologic: Affect normal, judgment normal (ANTHONY MCCAULEY DO) Current Patient Data: Labs: Laboratory Tests Test 11/13/20 20:37 POC Urine HCG, Qualitative hcg negative (Negative) Vital Signs: Vital Signs Date Time Temp Pulse Resp B/P (MAP) Pulse Ox O2 Delivery O2 Flow Rate FiO2 11/13/20 20:06 98.4 120 18 106/56 (73) 97 Room Air (CARLOS CARVALHO APRN) EKG: EKG: [] (CARLOS CARVALHO APRN) Radiology/Procedures: Radiology/Procedures: [] (CARLOS CARVALHO APRN) Heart Score: Risk Factors: Risk Factors: DM, Current or recent (<one month) smoker, HTN, HLP, family history of CAD, obesity. Risk Scores: Score 0 - 3: 2.5% MACE over next 6 weeks - Discharge Home Score 4 - 6: 20.3% MACE over next 6 weeks - Admit for Clinical Observation Score 7 - 10: 72.7% MACE over next 6 weeks - Early Invasive Strategies (CARLOS CARVALHO APRN) Course & Med Decision Making: Course & Med Decision Making Pertinent Labs and Imaging studies reviewed. (See chart for details) [] 25-year-old female presents with dizziness and headache that has been coming and going for the last 2 days. EKG ordered. Sinus tach. Heart rate 102 bpm. Labs ordered to rule out electrolyte imbalance. (CARLOS CARVALHO APRN) Course & Med Decision Making 2200- Sign out received from Carlos MARTINEZ for patient with dizziness. Concern for vertigo. Patient pending laboratory results. Symptomatic treatment previously provided. Labs reviewed and posted to chart. Patient seen and evaluated by myself. Patient stable for discharge with outpatient follow-up with PCP. Discussed findings and plan with patient, who acknowledges understanding and agreement. (ANTHONY MCCAULEY DO) Dragon Disclaimer: Dragon Disclaimer: This electronic medical record was generated, in whole or in part, using a voice recognition dictation system. (CARLOS CARVALHO APRN) Departure Departure: Impression: Primary Impression: Dizziness Disposition: 01 DC HOME SELF CARE/HOMELESS Condition: STABLE Referrals: PCP,NO (PCP) Patient Instructions: Dizziness, [id number], Vertigo, Zrks-[id number] Scripts Meclizine Hcl (MECLIZINE HCL) 25 Mg Tablet 1 TAB PO PRN TID PRN for DIZZINESS, #20 TAB Prov: ANTHONY MCCAULEY DO 11/14/20 CARLOS CARVALHO APRN Nov 13, 2020 21:26 ANTHONY MCCAULEY DO Nov 14, 2020 00:05
[2020-11-13 21:49] LABS: BILIRUBIN,URINE NEG (NEG); CLARITY,URINE CLEAR; COLOR,URINE YELLOW; GLUCOSE,URINE NEG (NEG); NITRITE,URINE NEG (NEG); UROBILINOGEN,URINE 0.2 mg/dL (0.2 mg/dL)
[2020-11-13 21:50] LABS: BACTERIA,URINE 0 /HPF (0-FEW); SQUAMOUS EPITHELIAL CELL,UR FEW /LPF
[2020-11-13 22:44] LABS: BASO % 1 % (0-3); EOS # 0.1 x10^3/uL (0.0-0.7); EOS % 1 % (0-3); HEMATOCRIT 45.4 % (36.0-47.0); LYMPH # 2.7 x10^3/uL (1.0-4.8); LYMPH % 28 % (24-48); MEAN CORPUSCULAR HEMOGLOBIN 27 pg (25-35); MEAN CORPUSCULAR HGB CONC 33 g/dL (31-37); MEAN CORPUSCULAR VOLUME 80 fL (79-100); MONO # 0.8 x10^3/uL (0.0-1.1); MONO % 9 % (0-9); NEUT # 5.8 x10^3uL (1.8-7.7); NEUT % 62 % (31-73); PLATELET COUNT 303 x10^3/uL (140-400); RED BLOOD COUNT 5.66 x10^6/uL (3.50-5.40); RED CELL DISTRIBUTION WIDTH 14.5 % (11.5-14.5); WHITE BLOOD COUNT 9.4 x10^3/uL (4.0-11.0)
[2020-11-13 22:45] LABS: CALCIUM 8.9 mg/dL (8.5-10.1); POTASSIUM 3.8 mmol/L (3.5-5.1)
--- NOTE | 2020-11-13 22:46 | EKG ---
[facility] ED [facility] [place] [id number] Test Date: 2020-11-13 Test Time: 20:51:31 Pat Name: KEENAN OCHOA Department: Room: Gender: F Tree Thinner: : 1995 Requested By: CARLOS CARVALHO Order Number: [id number] Reading MD: Measurements Intervals [place] Rate: 102 P: 47 TN: 128 QRS: 16 QRSD: 80 T: 14 QT: 348 QTc: 458 Interpretive Statements SINUS TACHYCARDIA LEFT ATRIAL ABNORMALITY QRS(T) CONTOUR ABNORMALITY CONSISTENT WITH ANTEROSEPTAL MYOCARDIAL DAMAGE ABNORMAL ECG RI6.02 No previous ECG available for comparison
[2020-11-14] MEDS ORDERED: MECL-75 PO (00:05)
[2020-11-14 00:20] VITALS: BP 146/91
== END 2020-11-14 00:20 | disposition home or self-care (01) ==
LOC: ER 20:06
DX: R42 Dizziness and giddiness (principal); R51.9 Headache, unspecified; Z87.891 Personal history of nicotine dependence
CPT/HCPCS: 36415; 80048; 81001; 81025; 85025; 87086; 93005; 96374; 99284; J1100

== ENCOUNTER 2021-07-11 16:30 | Emergency (ER) | payer OTHER ==
[~2021-07-11] VITALS: Ht 160 cm; Wt 124.5 kg
[~2021-07-11 16:30] MED LIST changes: +MECL-75 PO
[2021-07-11 16:49] VITALS: BP 129/84
[2021-07-11] MEDS ORDERED: HYDROcodone/APAP 5/325MG 1 TAB TABLET PO ONE (18:00)
--- NOTE | 2021-07-11 18:08 | PHYS DOC ---
Past History Past Medical History: No Pertinent History (CARLOS CARVALHO APRN) Past Surgical History: Cholecystectomy (CARLOS CARVALHO APRN) Smoking: Cigarettes, Less than 1pk/day, Quit Less Than 1 Year Alcohol Use: None Drug Use: None (CARLOS CARVALHO APRN) General Adult EDM: Chief Complaint: MECHANICAL FALL HPI: HPI: Patient is a 25-year-old female who presents with a left ankle and left shoulder pain after a fall. Patient states she slipped and fell on oil and landed on her left side. Patient states "I am unable to lift my left arm all the way up without pain, and I had to have help walking into the emergency room because of the pain in my ankle". Denies taking anything for pain prior to arrival. Denies medical history. (CARLOS CARVALHO APRN) Review of Systems: Review of Systems: Constitutional: Denies fever or chills Eyes: Denies change in visual acuity HENT: Denies nasal congestion or sore throat Respiratory: Denies cough or shortness of breath Cardiovascular: Denies chest pain or edema GI: Denies abdominal pain, nausea, vomiting, bloody stools or diarrhea : Denies dysuria Musculoskeletal: Reports left shoulder and left ankle pain Integument: Denies rash Neurologic: Denies headache, focal weakness or sensory changes Endocrine: Denies polyuria or polydipsia Lymphatic: Denies swollen glands Psychiatric: Denies depression or anxiety (CARLOS CARVALHO APRN) Current Medications: Current Meds: Current Medications Medications (Trade) Dose Ordered Sig/Alanis Start Time Stop Time Status Last Admin Dose Admin Acetaminophen/ Hydrocodone Bitart (Lortab 5/325) 1 tab 1X ONCE 07/11/21 18:00 07/11/21 18:02 DC (CARLOS CARVALHO APRN) Allergies: Allergies: Allergies Coded Allergies Type Severity Reaction Last Updated Verified No Known Drug Allergies 07/11/21 No (CARLOS CARVALHO APRN) Physical Exam: PE: Constitutional: Well developed, well nourished, no acute distress, non-toxic appearance. [] HENT: Normocephalic, atraumatic, bilateral external ears normal, oropharynx moist, no oral exudates, nose normal. [] Eyes: PERRLA, EOMI, conjunctiva normal, no discharge. [] Neck: Normal range of motion, no tenderness, supple, no stridor. [] Cardiovascular:Heart rate regular rhythm, no murmur [] Lungs & Thorax: Bilateral breath sounds clear to auscultation [] Abdomen: Bowel sounds normal, soft, no tenderness, no masses, no pulsatile masses. [] Skin: Warm, dry, no erythema, no rash. [] Back: No tenderness, no CVA tenderness. [] Extremities: Left ankle and left shoulder tenderness, ROM intact Neurologic: Alert and oriented X 3, normal motor function, normal sensory function, no focal deficits noted. [] Psychologic: Affect normal, judgement normal, mood normal. [] (CARLOS CARVALHO APRN) Current Patient Data: Vital Signs: Vital Signs Date Time Temp Pulse Resp B/P (MAP) Pulse Ox O2 Delivery O2 Flow Rate FiO2 07/11/21 16:49 98.0 114 18 129/84 98 Room Air (CARLOS CARVALHO APRN) EKG: EKG: [] (CARLOS CARVALHO APRN) Radiology/Procedures: Radiology/Procedures: []XR SHOULDER_LEFT 2+ VIEWS History: Reason: fall / Spl. Instructions: / History: Pain Technique: 3 views left shoulder Comparison: None. Findings: No dislocation. No acute fracture. Small sclerotic lesion within the left hu meral head and shoulders 0.7 cm, likely bone island. Impression: 1. No acute osseous abnormalities. Electronically signed by: Tyson Knowles DO (07/11/2021 6:19 PM) [facility] XR EXAM OF ANKLE_LEFT 3V History: Reason: fall / Spl. Instructions: / History. Pain Technique: 3 views left ankle Comparison: None. Findings: No dislocation. No acute fracture. Symmetric ankle mortise. Impression: 1. No acute osseous abnormality. Electronically signed by: Tyson Knowles DO (07/11/2021 6:21 PM) [facility] (CARLOS CARVALHO APRN) Heart Score: C/O Chest Pain: No Risk Factors: Risk Factors: DM, Current or recent (<one month) smoker, HTN, HLP, family history of CAD, obesity. Risk Scores: Score 0 - 3: 2.5% MACE over next 6 weeks - Discharge Home Score 4 - 6: 20.3% MACE over next 6 weeks - Admit for Clinical Observation Score 7 - 10: 72.7% MACE over next 6 weeks - Early Invasive Strategies (CARLOS CARVALHO APRN) Course & Med Decision Making: Course & Med Decision Making Pertinent Labs and Imaging studies reviewed. (See chart for details) [] 25-year-old female presents with left ankle and left shoulder pain after slipping on oil today. Patient states that she slipped and fell and landed on her left side. Denies hitting her head or loss of consciousness. Left ankle x-ray and left shoulder x-ray ordered to rule out fracture. Patient given 5/325 hydrocodone for pain. Left ankle x-ray and left shoulder x-ray are both negative for fracture. Discussed results with patient. Explained to patient if pain continues she needs to follow-up with her PCP for possible repeat imaging. Ibuprofen and Tylenol at home for discomfort. Rice instructions given. Ankle brace and shoulder sling given. (CARLOS CARVALHO APRN) Dragon Disclaimer: Dragon Disclaimer: This electronic medical record was generated, in whole or in part, using a voice recognition dictation system. (CARLOS CARVALHO APRN) Departure Departure: Impression: Primary Impression: Ankle sprain Qualified Codes: S93.402A - Sprain of unspecified ligament of left ankle, initial encounter Additional Impression: Left shoulder pain Qualified Codes: M25.512 - Pain in left shoulder Disposition: HOME / SELF CARE / HOMELESS Condition: STABLE Referrals: DEBORAH SANCHEZ MD (PCP) Patient Instructions: Ankle Pain, RICE - Routine Care for Injuries, Shoulder Pain, [id number] Additional Instructions: You were seen in the emergency room after a slip and fall. X-ray of your left ankle and left shoulder were both negative for fracture. If pain continues you need to follow-up with your PCP in about a week for possible repeat imaging. In the meantime we will be giving you an ankle brace and crutches. Take ibuprofen and Tylenol at home for pain. The next couple days it is a good idea to try and rest, use ice to the area, and elevate. Return to emergency room if you have worsening symptoms or concerns. EMERGENCY DEPARTMENT GENERAL DISCHARGE INSTRUCTIONS Thank you for coming to [facility] (ED) today and trusting us with you care. We trust that you had a positivie experience in our Emergency Department. If you wish to speak to the department management, you may call the director at [phone]. YOUR FOLLOW UP INSTRUCTIONS ARE FOLLOWS: 1. Do you have a private Doctor? If you do not have a private doctor, please ask for a resource list of physicians or clinics that may be able to assist you with follow up care. 2. The Emergency Physician has interpreted your x-rays. The X-Ray specialist will also review them. If there is a change in the findings, you will be notified in 48 hours when at all possible. 3. A lab test or culture has been done, your results will be reviewed and you will be notified if you need a change in treatment. ADDITIONAL INSTRUCTIONS AND INFORMATION: 1. Your care today has been supervised by a physician who is specially trained in emergency care. Many problems require more than one evaluation for a complete diagnosis and treatment. We recommend that you schedule your follow up appointment as recommended to ensure complete treatment of you illness or injury. If you are unable to obtain follow up care and continue to have a problem, or if your condition worsens, we recommend that you return to the ED. 2. We are not able to safely determine your condition over the phone nor are we able to give sound medical advice over the phone. For these safety reasons, if you call for medical advice we will ask you to come to the ED for further evaluation. 3. If you have any questions regarding these discharge instructions please call the ED at [phone]. SAFETY INFORMATION: In the interest of safety, wellness, and injury prevention; we encourage you to wear your sealbelt, if you smoke; quite smoking, and we encourage family to use a protective helmet for bicycling and other sporting events that present an increased risk for head injury. IF YOUR SYMPTOMS WORSEN OR NEW SYMPTOMS DEVELOP, OR YOU HAVE CONCERNS ABOUT YOUR CONDITION; OR IF YOUR CONDITION WORSENS WHILE YOU ARE WAITING FOR YOUR FOLLOW UP APPOINTMENT; EITHER CONTACT YOUR PRIMARY CARE DOCTOR, THE PHYSICIAN WHOSE NAME AND NUMBER YOU WERE GIVEN, OR RETURN TO THE ED IMMEDIATELY. Attending Signature Attending Signature I have reviewed the PA/MENTAL HYGIENE CONSULTANT's note and plan of care. I was available for consultation as needed during the patient's visit in the emergency department. I agree with the clinical impression, plan, and disposition. (ANTHONY MCCAULEY DO) CARLOS CARVALHO APRN Jul 11, 2021 18:08 ANTHONY MCCAULEY DO Jul 11, 2021 23:36
--- NOTE | 2021-07-11 18:21 | RAD ---
XR SHOULDER_LEFT 2+ VIEWS History: Reason: fall / Spl. Instructions: / History: Pain Technique: 3 views left shoulder Comparison: None. Findings: No dislocation. No acute fracture. Small sclerotic lesion within the left humeral head and shoulders 0.7 cm, likely bone island. Impression: 1. No acute osseous abnormalities. Electronically signed by: Tyson Knowles DO (07/11/2021 6:19 PM) [facility]
--- NOTE | 2021-07-11 18:23 | RAD ---
XR EXAM OF ANKLE_LEFT 3V History: Reason: fall / Spl. Instructions: / History. Pain Technique: 3 views left ankle Comparison: None. Findings: No dislocation. No acute fracture. Symmetric ankle mortise. Impression: 1. No acute osseous abnormality. Electronically signed by: Tyson Knowles DO (07/11/2021 6:21 PM) [facility]
== END 2021-07-11 18:52 | disposition home or self-care (01) ==
LOC: ER 16:30
DX: S93.402A Sprain of unspecified ligament of left ankle, initial encounter (principal); M25.512 Pain in left shoulder; F17.210 Nicotine dependence, cigarettes, uncomplicated; W01.0XXA Fall on same level from slipping, tripping and stumbling without subsequent striking against object, initial encounter; Y93.89 Activity, other specified; Y92.89 Other specified places as the place of occurrence of the external cause; Y99.8 Other external cause status
CPT/HCPCS: 73030; 73610; 99284